=== PATIENT | male | born 1945 | race Caucasian/White ===

== ENCOUNTER → 2017-01-15 | Day surgery (SDC) | payer MEDICARE, OTHER ==
[~2017-01-15] VITALS: Ht 175.3 cm; Wt 74.1 kg
[2017-01-15] VITALS (15 sets, daily range): BP systolic 100–125; BP diastolic 61–74; PULSE 49–69; RESP 8–17; O2SAT 93–98
[~2017-01-15] MED LIST: AMLO10TA3 PO; ASPI-973 PO; ATA16T PO; ATOR20TA PO; Bupivacaine Liposome 1.3% 20 mL Inj INFILTRATE ONE; Bupivacaine-MPF 0.25%/EPI 30 mL Inj INFILTRATE ONE; CeFAZolin Inj 2 GM in IV Premix 1 EACH IV ONE; Dexamethasone 4 mg/mL Inj IVPUSH PRN; EPHEDrine Sulfate 50 mg/mL Inj IVPUSH PRN; Gentamicin 40 mg/mL 2 mL Inj IRRIGATION ONE; HYDROmorphone 1 mg/mL Inj IVPUSH PRN; Ketamine 10 mg/mL 20 mL Inj ONE; LEVO100T6 PO; LOSA50TA37 PO; Lactated Ringer's 1,000 ML IV ONE; Lactated Ringer's 1,000 ML IV SCH; Lactated Ringer's 500 ML IV PRN; MetoCLOpramide 5 mg/mL 2 mL Inj IVPUSH PRN; Ondansetron 2 mg/mL 2 mL Inj IVPUSH PRN; Phenylephrine 10,000 mCg/mL Inj IVPUSH PRN; Propofol 10,000 mCg/mL 20 mL Inj ONE; TAMS0.4C98 PO; Vancomycin Inj 1,000 MG in IV Premix 1 EACH IV ONE; [UNRECOGNIZED DRUG - OTHER] PO; fentaNYL-PF 50 mCg/mL 2 mL Inj IVPUSH PRN; oxyCODONE-Acetamin 5-325 mg Tablet PO PRN
[2017-01-15] MEDS: Lactated Ringer's 1,000 ML IV SCH ×2 (07:45→10:03)
--- NOTE | 2017-01-15 09:04 | PCM.HPANE ---
Patient Data Date of Service: Jan 15, 2017 Surgeon Admitting Provider: Attending Provider:Kayden Mccarthy MD Primary Care Physician:Tosha Guerrero Other Provider: Reason for Visit Left Knee Arthritis Ht/WT & BMI Height (Feet): 5 Height (Inches): 9.00 Weight (Kilograms): 74.1 Body Mass Index 24.00 Allergies Coded Allergies: No Known Allergies (Unverified , 01/09/17) Past Anesthesia History Anesthesia History: Denies:: Abnormal Airway, Anesthesia Reactions, Difficult Intubation, Fam Anesthesia Reaction, Fam Malignant Hypertherm, Malignant Hyperthermia Diabetes History Hx Diabetes?: No MRSA MRSA: No Medications Blood Thinner: Aspirin Last Dose Blood Thinner: Jan 09, 2017 Hypertension Medication: Yes (Lipitor losartan) Home Meds Incl Beta Rizwan: No Reported Medications Tamsulosin (Flomax)0.4 Mg Capsule0.4 Mg PO DAILY Ref 0 01/15/17 Losartan Potassium 50 Mg [id number] Mg PO DAILY 01/09/17 Atorvastatin (Lipitor)20 Mg [id number] Mg PO DAILY Ref 0 01/09/17 Levothyroxine 100 Mcg [id number] Mcg PO DAILY For Thyroid Replacement Ref 0 01/09/17 Aspirin 81 Mg Tolorl10 Mg PO DAILY Ref 0 01/09/17 Amlodipine 10 Mg [id number] Mg PO DAILY Ref 0 01/09/17 Discontinued Reported Medications [triosint] No Conflict Check88 Mcg PO DAILY 01/09/17 Candesartan Cilexetil (Atacand)16 Mg [id number] Mg PO DAILY 01/09/17 History History of ENT Problems?: No HEENT History: Positive for:: Hearing Problem Denies:: Abnormal Airway Difficult Intubation Dysphagia Sinus Problem TMJ Denture Type: None Teeth Condition: Within Normal Limits Hx of Heart Problems?: Yes Cardiovascular History: Positive for:: Cardiac Surgery (1998 stent placed) Hypertension Hx of Respiratory Problem?: No Respiratory History: Denies:: Pneumonia Pulmonary Embolism Tuberculosis Use of C-PAP Machine Hx Neurologic Problems?: No Neurological History: Denies:: Alzheimer's Disease Dementia Parkinson's Disease Hx of GI Problems?: No Hx of Problems?: No Male Hx: Denies:: Prostate Problems Scrotal Mass Testicular Surgery Skin History: Denies:: History Skin Disorders? Pressure Ulcers Hx Musculoskeletal Problems?: Yes (Primary OA knee) Musculoskeletal History: Positive for:: Degenerative Joint Joint Replacement (bilat shoulders) Osteoarthritis Denies:: Back Injury Musculoskeletal Trauma Hx of Psycho/Social Problems?: No Hx Surgeries?: Yes (cardiac stent, Ulcer repair, knee) Other History: Positive for:: Hospitalization (heart attack 1997) Thyroid Disease Denies:: Cancer Endocrine Disease History Blood Transfusions: Positive for:: Accept Blood Products? Blood Transfusions Denies:: Blood Transfuse Reaction Hx Diabetes: No Hx Alcohol Use: No (occassionally)Hx Substance Use: No Stop/Bang S-Snoring: Do You Snore Loudly: No T-Tired: feel tired, fatigued: No O-Obsered: Observed not breath: No P-Blood Pressure: treated: Yes B- Body Mass Index > 35 kg/m2: No A- Age over 50: Yes N- Neck Large Circumference: No G- Gender Male: Yes CHASTITY Total Score: 3 Risk Assessment Category Category 1A: Patient has history of documented sleep apnea, and HAS NOT received any narcotic, sedative or anesthesia administration during this stay. Category 1B: Patient has history of documented sleep apnea, and HAS received any narcotic , sedative or anesthesia administration during this stay Category 2: Patient has SUSPECTED Obstructive Sleep Apnea, and HAS received any narcotic , sedative or anesthesia administration during this stay. Category 3: Patient has SUSPECTED Obstructive Sleep Apnea and HAS NOT received narcotic, sedative or anesthesia administration during this stay. Category 4: Outpatient in Procedural Areas with known sleep apnea or who screen positive for High Risk via the STOP/BANG questionnaire. Exam Exam Vital Signs Vital Signs Date Time Temp Pulse Resp B/P Pulse Ox O2 Delivery O2 Flow Rate FiO2 01/15/17 07:30 36.1 69 17 125/73 97 Room Air General Appearance: Alert, Oriented X3, Cooperative, No Acute Distress HEENT/AIRWAY: MP 2 Lungs: Clear to Auscultation, Normal Air Movement Heart: Exam Unremarkable, Regular Rate/Rhythm, No Murmurs/Rubs/Gallops Meds/Labs/Diagnostics Admission Meds Current Medications Vancomycin/0.9 % Sod Chloride 1000 mg/Premix 200 ml @ 133.333 mls/hr PREOP ONCE IV Last administered on 01/15/17t 08:02; Start 01/15/17 at 06:00; Stop at 07:29; Status DC Lactated Ringer's (Lr) 1,000 ml @ 120 mls/hr Q8H20M IV Last administered on t 07:45; Start 01/15/17 at 05:00; Stop 01/15/17 at 13:19 Plan Impression Patient chart reviewed, patient interviewed and anesthestic plan with risks, benefits, and alternatives discussed, and informed consent obtained. NPO per Anesth. Guidelines: Yes ASA Physical Status: ASA3 Severe Disease Anesthetic Plan: GA Bene/Risks/Altern/Consents: Yes HP Complete Prior to Induction: Yes Chicho Villalobos DO Jan 15, 2017 09:04
--- NOTE | 2017-01-15 12:16 | DRSVH ---
PROCEDURE: X-RAY LEFT KNEE, ONE OR TWO VIEWS ([id number]) INDICATIONS: POST OP TECHNIQUE: 2 views of the knee were acquired. COMPARISON: [facility], CR, XR KNEE ARTHRITIC SERIES LT, 06/13/2016, 7:46. FINDINGS: Expected interval postoperative changes are noted related to a medial tibiofemoral compartment hemiar throplasty of the left knee. The metallic prosthetic components appear to be appropriately seated wi thout periprosthetic fracture or lucency. Expected postoperative changes within the soft tissues ove rlying the knee are evident with a joint effusion and soft tissue air present. A drainage catheter i s seen overlying the knee. No unexpected radiopaque foreign bodies are identified. IMPRESSION: Expected postoperative changes related to a medial tibiofemoral compartment hemiarthropla sty. Dictated by: Surya Steward M.D. on 01/15/2017 at 11:13 Approved by: Surya Steward M.D. on 01/15/2017 at 11:14
--- NOTE | 2017-01-15 13:54 | PCM.ANEP1 ---
Post Anesthesia PACU Phase 1 Assessment Date of Service: Jan 15, 2017 Vital Signs Vital Signs Date Time Temp Pulse Resp B/P Pulse Ox O2 Delivery O2 Flow Rate FiO2 01/15/17 13:35 52 16 110/67 95 Room Air 01/15/17 12:24 55 16 114/67 95 Room Air 01/15/17 12:14 36.3 53 12 110/61 97 Room Air 01/15/17 12:10 36.3 51 11 100/61 94 Room Air 01/15/17 12:10 13 93 01/15/17 12:00 51 12 104/67 96 Room Air 01/15/17 11:45 36.3 49 14 117/74 95 Room Air 01/15/17 11:40 53 9 122/68 95 Room Air 01/15/17 11:35 53 8 122/72 95 Room Air 01/15/17 11:30 57 8 115/70 96 Room Air 01/15/17 11:27 16 93 01/15/17 11:24 36.2 115/71 01/15/17 07:30 36.1 69 17 125/73 97 Room Air Anesthetic Administered: SAB Level of Alertness: Awake, talking PASCUAL's with Equal Strength: Yes Pain: No Nausea or Vomiting: No CV Function & Hydration Stable: Yes Airway Device: Oxygen Delivery: Room Air Lungs: Clear to Auscultation, Normal Air Movement Dermatome Level: Full Sensation PACU Phase 2 Assessment Patient Instructions Provided: N/A Chicho Villalobos DO Jan 15, 2017 13:54
--- NOTE | 2017-01-15 18:04 | OP ---
[address] [address] OPERATIVE REPORT PATIENT: MARA MAGALLON : 1945 MR#: [id number] ADMIT: 01/15/2017 JOB ID: [id number] DATE OF SURGERY: 01/15/2017 PREOPERATIVE DIAGNOSIS(ES): Advanced medial compartment osteoarthritis left knee. POSTOPERATIVE DIAGNOSIS(ES): Advanced medial compartment osteoarthritis left knee. SURGEON: Kayden Mccarthy MD GAS LINE SERVICER: Aniya Alba PA-C. Bulb Planter required due to the complexity of the operation. INDICATION FOR PROCEDURE: This patient has had progressive disabling osteoarthritis symptoms uncontrolled by conservative treatment techniques. The patient wishes to proceed with a unicompartmental knee arthroplasty understanding and accepting the potential for risks and complications, which includes but is not limited to infection, thromboembolic/neurovascular events, as well as the potential for progressive arthritis in unresurfaced compartments and implant failure. Understanding these, he wishes to proceed. PROCEDURE: The patient was prepped and draped in the usual sterile fashion. Appropriate time-out protocol was observed. An anteromedial approach was made in the knee. Frontal bossing was removed from the tibia and a patellar osteophyte was removed. The tibial guide was placed and a standard a 2-4 mm tibial cut was made. The bone fragments were removed. Alignment soft tissue tension was checked with the 9 mm spacer block and was noted to be appropriate. The spacer block was fixed at the distal femur and a distal femoral cut was made. The femur was sized to an appropriate sized femoral implant (please see implant list) and drill holes and chamfer cuts were made. All meniscal tissue and osteophytes were subsequently removed from the knee. The tibia was sized to an appropriately sized implant (please see implant list), fixed with a pin provisionally, and PEG holes were drilled. Trial reductions were subsequently performed after placement of a femoral provisional, and a 9 mm polyethylene produced excellent soft tissue tension, tracking, and alignment. Pressurized lavage was performed. Following this, pressurized cementation of the implants with removal of excess cement during the curing process. Final construct was assembled and the tourniquet was let down. A deep Hemovac drain was left. Deep closure with number #2 Quill deep followed by a 2-0 Vicryl and a 3-0 intracuticular stitch with Steri-Strips. A sterile dressing was applied. Following the initial incision, through the subcutaneous tissues were irrigated with a dilute Betadine solution per protocol. Standard postoperative course for unicompartmental knee arthroplasty recommended.
== END | disposition home or self-care (01) ==
LOC: SAS 06:58
PROVIDERS: ATTEND Orthopaedic Surgery
DX: M17.12 Unilateral primary osteoarthritis, left knee (principal); I10 Essential (primary) hypertension; E03.9 Hypothyroidism, unspecified; Z79.82 Long term (current) use of aspirin; Z95.5 Presence of coronary angioplasty implant and graft; Z96.611 Presence of right artificial shoulder joint; Z96.612 Presence of left artificial shoulder joint; Z86.73 Personal history of transient ischemic attack (TIA), and cerebral infarction without residual deficits
CPT/HCPCS: 27446; 73560; C1713; C1776; J0690; J1580; J1885; J2405; J2765; J3370; J7120